=== PATIENT | male | born 1985 | race Hispanic/Latino ===

== ENCOUNTER 2021-09-30 14:13 | Emergency (ER) | payer SELFPAY ==
[~2021-09-30] VITALS: Ht 172.7 cm; Wt 72.0 kg
[2021-09-30] MEDS ORDERED: LIDOCAINE HCL VIS2 % TOP (17:18)
[2021-09-30] MEDS ORDERED: ANUSOL-HC25 MG RE (17:18)
[2021-09-30 17:26] VITALS: BP 118/76
== END 2021-09-30 17:26 | disposition home or self-care (01) | DRG 395 ==
LOC: ED 14:13
DX: K64.4 Residual hemorrhoidal skin tags (principal)